=== PATIENT | female | born 1995 | race Caucasian/White ===

== ENCOUNTER 2021-11-27 07:25 | Emergency (ER) | payer OTHER ==
[~2021-11-27] VITALS: Ht 172.7 cm; Wt 60.3 kg
[2021-11-27 07:51] LABS: BASOPHILS % (AUTO) 0.5 % (0.0-5.0); EOSINOPHILS % (AUTO) 0.6 % (0.0-8.0); HEMATOCRIT 42.9 % (36-48); LYMPHOCYTES % (AUTO) 24.3 % (21.0-51.0); MEAN CORPUSCULAR HEMOGLOBIN 29.4 pg (27.0-33.0); MEAN CORPUSCULAR HGB CONC 32.9 g/dL (32.0-36.0); MEAN CORPUSCULAR VOLUME 89.6 fL (79-99); NEUTROPHILS % (AUTO) 65.3 % (40.0-77.0); PLATELET COUNT (AUTO) 197 K/uL (130-400); RED BLOOD CELL COUNT(AUTO) 4.79 MIL/uL (4.00-5.50); RED CELL DISTRIBUTION WIDTH 12.6 % (11.0-15.5); WHITE BLOOD COUNT (AUTO) 6.6 K/uL (4.8-10.8)
[2021-11-27 08:00] LABS: POTASSIUM 3.9 mmol/L (3.5-5.1)
[2021-11-27 08:04] LABS: ALBUMIN 4.1 g/dL (3.5-5.0); TOTAL PROTEIN, SERUM 7.4 g/dL (6.0-8.3)
[2021-11-27] MEDS ORDERED: 0.9%NACL 1000ML 1,000 ML IV ONE (09:00)
[2021-11-27 11:00] VITALS: BP 108/58
== END 2021-11-27 11:56 | disposition home or self-care (01) ==
LOC: EDH 07:25
DX: U07.1 COVID-19 (principal); R55 Syncope and collapse; E86.0 Dehydration; Z88.0 Allergy status to penicillin; Z91.013 Allergy to seafood
CPT/HCPCS: 99285; 96360; 71045; 87635; 84484; 80053; 85025; 85378; 81025; 36415; 93005; C9803; J7030